=== PATIENT | male | born 1980 | race Caucasian/White ===

== ENCOUNTER 2016-12-10 19:30 | Emergency (ER) | payer OTHER ==
[~2016-12-10] VITALS: Ht 188 cm; Wt 106.0 kg
[~2016-12-10 19:30] MED LIST: ADVIL,NUPRIN,M200 MG PO; ASCORBIC ACID100 MG PO; BUPRENORPHIN-N1 EACH SL; CLOBETASOL PROP60 GM TP; CLOBEX59 ML TP; CLONIDINE HCL0.1 MG PO; EFFEXOR XR150 MG PO; EFFEXOR XR75 MG PO; EFFEXOR75 MG PO; ILOTYCIN1 GM BOTH EYES; INDOCIN25 MG PO; LIBRIUM25 MG PO; MEDROL DOSEPAK4 MG PO; NAPROXEN500 MG PO; NEURONTIN800 MG PO; NOHOMEMEDS; NORCO 5/3251 TABLET PO; PREDNISONE20 MG PO; PROMETHAZINE HC25 M1 PO; PROTONIX40 MG PO; ST. JOHN'S WOR150 MG PO; SUBOXONE 8 M1 TABLET SL; TRAZODONE HCL50 MG PO; ULTRAM50 MG PO; VENLAFAXINE HCL75 M3 PO; VENLAFAXINE HCL75 MG PO; VENTOLIN HFA18 GM IH; VITAMIN B12 100MCG PO; ZANTAC150 MG PO; ZITHROMAX Z-PA250 MG PO; ZOFRAN ODT4 MG PO
[2016-12-10 19:46] VITALS: BP 143/87
== END 2016-12-10 21:50 | disposition left against medical advice (07) ==
LOC: EME 19:30
DX: F41.9 Anxiety disorder, unspecified (principal); Z87.442 Personal history of urinary calculi; B19.10 Unspecified viral hepatitis B without hepatic coma; F17.200 Nicotine dependence, unspecified, uncomplicated
CPT/HCPCS: 99281; 99283

== ENCOUNTER 2017-03-06 08:22 | Emergency (ER) | payer OTHER ==
[~2017-03-06] VITALS: Ht 188 cm; Wt 102.9 kg
[2017-03-06 08:34] VITALS: BP 130/84
[2017-03-06] MEDS ORDERED: FLEXERIL10 MG PO (08:54)
[2017-03-06] MEDS ORDERED: LIDODERM 5% P1 PATCH TD (08:54)
[2017-03-06] MEDS ORDERED: MOTRIN800 MG PO (08:55)
== END 2017-03-06 09:33 | disposition home or self-care (01) ==
LOC: EME 08:22
DX: M54.41 Lumbago with sciatica, right side (principal); S33.5XXA Sprain of ligaments of lumbar spine, initial encounter; X58.XXXA Exposure to other specified factors, initial encounter
CPT/HCPCS: 99281; 99283

== ENCOUNTER 2017-03-13 14:55 | Emergency (ER) | payer OTHER ==
[~2017-03-13] VITALS: Ht 188 cm; Wt 104.9 kg
[~2017-03-13 14:55] MED LIST changes: +FLEXERIL10 MG PO; +LIDODERM 5% P1 PATCH TD; +MOTRIN800 MG PO
[2017-03-13] MEDS ORDERED: ROBAXIN500 MG PO (16:24)
[2017-03-13] MEDS ORDERED: MEDROL DOSEPAK4 MG PO (16:24)
[2017-03-13 16:51] VITALS: BP 133/78
== END 2017-03-13 16:59 | disposition home or self-care (01) ==
LOC: EME 14:55
DX: M54.32 Sciatica, left side (principal); L25.1 Unspecified contact dermatitis due to drugs in contact with skin; G89.29 Other chronic pain; F17.200 Nicotine dependence, unspecified, uncomplicated
CPT/HCPCS: 99281; 99283

== ENCOUNTER 2017-07-10 12:36 | Emergency (ER) | payer OTHER ==
[~2017-07-10] VITALS: Ht 188 cm; Wt 109.4 kg
[~2017-07-10 12:36] MED LIST changes: +ROBAXIN500 MG PO
[2017-07-10 12:52] VITALS: BP 128/81
[2017-07-10] MEDS ORDERED: ADDERALL XR 3030 MG PO (14:54)
[2017-07-10] MEDS ORDERED: BUPRENORPHINE HC8 MG SL (14:57)
[2017-07-10] MEDS ORDERED: PROVENTIL,2.5 MG/3 M IH (15:37)
[2017-07-10] MEDS ORDERED: TESSALON200 MG PO (15:37)
[2017-07-10] MEDS ORDERED: MEDROL DOSEPAK4 MG PO (15:37)
== END 2017-07-10 16:36 | disposition left against medical advice (07) ==
LOC: EME 12:36
DX: R07.81 Pleurodynia (principal); J06.9 Acute upper respiratory infection, unspecified; Z88.0 Allergy status to penicillin; F17.200 Nicotine dependence, unspecified, uncomplicated
CPT/HCPCS: 71020; 80053; 81003; 83605; 85027; 87040; 94640; 99281; 99284